=== PATIENT | male | born 1960 | race Caucasian/White ===

== ENCOUNTER 2020-04-28 06:20 | Observation (INO) ==
[2020-04-28] MEDS ORDERED: BUPIVACAINE 0.25% 30 ML VIAL ONE (06:46)
[2020-04-28] MEDS ORDERED: BACITRACIN INJ 50,000 UNIT VIAL ONE (06:46)
[2020-04-28] MEDS ORDERED: LIDOCAINE HCL 1% 20 ML VIAL ONE (06:46)
--- NOTE | 2020-04-28 06:49 | Pre Anesthesia Assessment ---
Date of Service April 28, 2020 Pre Sedation Assessment Vital Signs Temp Pulse Resp BP Pulse Ox 04/28/20 06:31 36.7 C 67 16 150/100 H 96 Cardiovascular + irregularly irregular Respiratory normal respiratory effort, lungs clear to auscultation Pre-Sedation Airway Assessment Smoking Status: Never smoker Hx Sleep Apnea: No Short, Thick Neck: No Thyromental Distance: > or= 3.5 Finger Breadths Oral Cavity: + WNL Mallampati Class: III ASA: ASA3 NPO Status Date of Last Intake of Fluids: 04/28/20 Time of Last Intake of Fluids: 06:32 Last Oral Intake of Fluids Comment: sip with meds Date of Last Intake of Solid Food: 04/27/20 Time of Last Intake of Solid Foods: 17:30 Procedure Planning Contraindications for Sedation: none Current Medications Reviewed: Yes Notes The planned sedation has been discussed with the patient. Informed Consent was obtained. I have identified the patient, determined the appropriateness of sedation and have assessed the patient immediately prior to the procedure. All medicine(s) and interventions are by my order.
--- NOTE | 2020-04-28 06:49 | History & Physical Bridge Note ---
Date of Service April 28, 2020 History & Physical Bridge Note I have examined the patient, reviewed the History & Physical and in the interval since the performance of the History & Physical I have noted the following changes of clinical significance: no changes noted
[2020-04-28] MEDS ORDERED: MIDAZOLAM HCL 5 MG/ML 1 ML VIAL ONE (06:50)
[2020-04-28] MEDS ORDERED: CEFAZOLIN 250 MG/ML 1 GM VIAL ONE (06:50)
[2020-04-28] MEDS ORDERED: fentaNYL citrate 100 MCG/2 ML VIAL ONE ×2 (06:50→07:11)
[2020-04-28] MEDS ORDERED: MIDAZOLAM HCL 1 MG/ML 2ML VIAL ONE ×2 (07:12→07:38)
--- NOTE | 2020-04-28 08:04 | Post Anesthesia Assessment ---
Date of Service April 28, 2020 Post Sedation Assessment Vital Signs Temp Pulse Resp BP Pulse Ox 04/28/20 06:31 36.7 C 67 16 150/100 H 96 Recovery Score Activity: Moves 4 extremities Respiration: Deep Breath/Cough Circulation: +/-20% PreAnes Value Consciousness: Fully Awake Oxygen Saturation: > 92% On Room Air Discharge Sedation Level of Care: Fast Track Phase II Post Sedation Plan On clinical assessment, the patient appears to have tolerated the sedation without complications. Patient is recovering as anticipated. Patient will continue to be monitored by nursing and may be discharged when sedation discharge criteria are met per below protocol. Upon Completions of procedure up to 15 minutes continue every 5 minute vital signs and the P.A.R. score; then discharge to a Phase I or Fast Track to Phase II per the following guidelines: * Discharge Patient to appropriate Phase II area if PAR is 8 or greater or return to pre- procedure baseline. The post - procedure orders will be as directed. * If PAR score is less than 8 or not return to pre-procedure baseline then patient will follow Phase I monitoring till PAR is reached for Phase II. The Phase I may be done in procedure room or may call to secure a Phase I area. * If naloxone or flumazenil are used for reversal, hold in Phase I for continued monitoring from when last reversal dose was given for a minimum of 60 minutes or longer pending the nurse and/or physician discretion of patient condition before discharge to Phase II. Please call the Sedation Physician to re-evaluate and complete post-note for discharge to Phase II area. Do NOT discharge from procedure sedation or Phase 1 until post- sedation evaluation note is complete by procedure /sedation MD Sedation Discharge Instructions to be given to the patient at discharge to home.
[2020-04-28] MEDS ORDERED: OXYCODONE/ACETAMINOPHEN 5mg/325mg TAB PO PRN (08:05)
--- NOTE | 2020-04-28 08:05 | Operative Report ---
Post Operative Report Pre & Post Diagnosis ICM and NICM, persistent AF, SB Operation Date: 04/28/20 08:00 <No data on this case meets the specified criteria> I identified the patient and participated in the time-out.: Yes Procedure Dual chamber ICD and synchronized external cardioversion (with unsuccessful internal synchronized cardioversion) Operation Date: 04/28/20 08:00 Actual Procedures p Cineradiography w/Routine Exam - Amanda Cheek DO Surgeon Amanda Cheek, Automotive Product Engineer none Estimated Blood Loss 20 Findings Consistent with Post-Op Diagnosis Specimens none Description of Procedure see official report I attest to the content of the Intraoperative Record and any orders documented therein. Any exceptions are noted below.
--- NOTE | 2020-04-28 08:15 | Discharge Summary ---
Date of Service April 29, 2020 Admission HPI Per Admitting Provider Pt admitted for elective ICD and cardioversion Admission Exam Per Admitting Provider aaox3, NAD NC/AT, EOMI Supple No JVD irregular/irregular S1/S2, + systolic murmur CTA b/l no w/r/r soft nt/nd no LE edema b/l skin intact no focal deficits Principal Diagnosis ICM s/p ICD and cardioversion Discharge Exam aaox3, NAD NC/AT, EOMI Supple No JVD Nrl S1/S2, + systolic murmur CTA b/l no w/r/r soft nt/nd no LE edema b/l skin intact no focal deficits left pectoral incision intact, no hematoma mild ecchymosis Discharge Data Allergies Allergy/AdvReac Type Severity Reaction Status Date / Time pregabalin [From Lyrica] AdvReac Unknown Verified 04/28/20 06:43 Procedures Performed Operation Date: 04/28/20 08:00 Actual Procedures p Cineradiography w/Routine Exam - Amanda Cheek DO Ordered Studies 04/28/20 06:46 CL Cath Imgs for PACS use only Routine Hospital Course (1) Cardiomyopathy: (2) Atrial fibrillation: Total Time Total Time Spent Total Time Spent (In Minutes): 40 Total Time Includes: Examination of the Patient, Discharge Planning, Medication Reconciliation and Other Discharge Plan Discharge Items Patient Disposition: Home - Self-Care Reason For Visit: Atrial Fribrillation; Cardiomyopathy Discharge Diagnosis: ICM and NICM and persistent AF and SB s/p ICD with cardioversion Condition on Discharge: Good Activity: As commented below Activity Comment: do not lift your left arm over your left shoulder for 1 month Lifting: No more than 10 pounds Lifting Comment: do not lift more than 10 pounds with the left arm for 2 weeks Bathing: Keep incision dry Bathing Comment: keep dressing on & dry for until wound check Sexual Activity: After two weeks Non-emergency contact: [employer] Call non-emergency contact if: you have any medication questions Follow-up/Referrals: Reshma Butler M.D. [Primary Care Provider] - Diet: Heart Healthy Addtl Attending Provider Instructions: Device and wound check next week at [facility] Cardiology F/u with Dr. Cheek in 1 month as scheduled Keep an eye on your device area daily if you notice any swelling call Dr. Cheek's office immediately You need weekly INR checks for the next month Pending Studies at Discharge: No Stand-Alone Forms: My [facility] Medications and DC Order Prescriptions: Continued ASPIRIN (ASPIRIN EC) 81 MG tablet 81 mg PO DAILY Qty: 0 RF: 0 Amlodipine (Norvasc) 5 MG tablet 2.5 mg PO DAILY Qty: 0 RF: 0 EZETIMIBE (ZETIA) 10 MG tablet 10 mg PO DAILY Qty: 0 RF: 0 FUROSEMIDE (LASIX) 40 MG tablet 40 mg PO DAILY Qty: 0 RF: 0 Lisinopril (Zestril) 20 MG tablet 10 mg PO DAILY Qty: 0 RF: 0 Metoprolol Succinate (Metoprolol Succinate ER) 25 MG [id number] 25 mg PO BID Qty: 0 RF: 0 Potassium Chloride (K-Tabs) 10 MEQ [id number] 10 meq PO DAILY Qty: 0 RF: 0 Rosuvastatin Calcium (Crestor) 10 MG tablet 1 tab PO DAILY Qty: 0 RF: 0 Warfarin Sod (Coumadin) 5 MG tablet 5 mg PO DAILY Qty: 0 RF: 0 ASCORBIC ACID (VITAMIN C) 500 MG capsule 500 mg PO DAILY Qty: 0 RF: 0 MAGNESIUM OXIDE (MAG-OXIDE) 400 MG tablet 400 mg PO DAILY Qty: 0 RF: 0 MULTIPLE VITAMIN (MULTIVITAMIN) 1 TAB tablet 1 tab PO DAILY Qty: 0 RF: 0 Nitroglycerin (Nitrostat) 0.4 MG tablet 0.4 mg UT PRN Qty: 0 RF: 0 [place]-3 Fatty Acids (Fish Oil) 1,000 MG capsule 1 cap PO DAILY Qty: 0 RF: 0 SAW PALMETTO (SERENOA REPENS) (SAW PALMETTO) 500 MG capsule 1 cap PO BID Qty: 0 RF: 0 amiodarone 200 mg Tablet 200 mg PO DAILY RF: 0 fexofenadine 180 mg Tablet 180 mg PO DAILY RF: 0 eplerenone 25 mg Tablet 25 mg PO DAILY RF: 0 Discharge Orders: Discharge Order (Routine); Ordered 04/29/20 Ordered By: Amanda Cheek Admission Data Admit Date/Time: 04/28/20 07:43 Attending Provider: Amanda Cheek Admit Provider: Amanda Cheek Primary Care Provider: Reshma Butler
[2020-04-28] MEDS ORDERED: NITROGLYCERIN SL 0.4 MG/TAB TAB SL PRN (08:50)
[2020-04-28] MEDS ORDERED: NON-FORMULARY MEDICATION (Saw Palmetto (Serenoa Repens) (Saw Palmetto) 1 CAP) PO SCH (09:00)
[2020-04-28 09:28] LABS: INR 2.5 (0.9-1.1); Prothrombin Time 25.1 Seconds (9.0-12.0)
[2020-04-28] MEDS: POTASSIUM CHLORIDE 10 MEQ TABCR PO SCH (09:54)
[2020-04-28] MEDS: FUROSEMIDE 40 MG TAB PO SCH (09:54)
--- NOTE | 2020-04-28 12:18 | Electrocardiogram Report ---
Test Reason : Blood Pressure : / mmHG Vent. Rate : 067 BPM Atrial Rate : 067 BPM P-R Int : 334 ms QRS Dur : 110 ms QT Int : 438 ms P-R-T Axes : 028 -15 137 degrees QTc Int : 462 ms Atrial-paced rhythm with prolonged AV conduction Poor R wave progression, consider anterior IA vs. lead placement vs. LVH T wave abnormality, consider lateral ischemia Abnormal ECG No previous ECGs available Confirmed by Prasanna Moise ([id number]) on 04/28/2020 12:17:51 PM Referred By: Efraín Barnes Confirmed By:Pa Moise
[2020-04-28] MEDS ORDERED: WARFARIN SOD 7.5 MG TAB PO SCH (16:00)
[2020-04-28] MEDS: ACETAMINOPHEN 325 MG TAB PO PRN (16:23)
[2020-04-28] MEDS: METOPROLOL SUCC 25MG EXT REL TAB PO SCH (20:40)
[2020-04-29] MEDS: ACETAMINOPHEN 325 MG TAB PO PRN (05:41)
--- NOTE | 2020-04-29 06:23 | Operative Report (OR) ---
DATE OF OPERATION: 04/28/2020 PREOPERATIVE DIAGNOSES: Ischemic cardiomyopathy along with a nonischemic valvular component, persistent atrial fibrillation, sinus bradycardia. POSTOPERATIVE DIAGNOSES: Ischemic cardiomyopathy along with a nonischemic valvular component, persistent atrial fibrillation, sinus bradycardia, sinus rhythm. PROCEDURE: Dual chamber rate responsive implantable cardiac defibrillator under fluoroscopic guidance along with a failed internal synchronized cardioversion to the defibrillator and a successful external synchronized cardioversion transcutaneously. SURGEON: Amanda Cheek DO. ASSISTANTS: None. ANESTHESIA: Monitored conscious sedation administered under my supervision by Alee Manning. Start time 7:00, end time 7:58. Total of 9 mg of Versed, 200 mcg of fentanyl. IV FLUIDS: 30 mL. ANTIBIOTICS: Two grams of Ancef. BLOOD LOSS: About 20 mL. URINE OUTPUT: Not applicable. SPECIMEN: None. FINDINGS: See below. DRAINS: None. INDICATIONS: This is a 60-year-old gentleman with past medical history for coronary artery disease with a CABG in 1993 and he has an extensive apical DC requiring urgent CABG at that time with a POSEY to LAD that was patent on the most recent cath in 2013. His SVG to OM on this cath was 80% stenosed. His SVG to RCA was occluded. He has a history of PTCA to the LAD in 2000 as well as a PCI to the SVG OM graft in 2013. Other histories are hypertension, hyperlipidemia, sinus bradycardia, bicuspid aortic valve status post [employer] mechanical prosthesis in 1993 secondary to moderate aortic valve stenosis. Persistent atrial fibrillation since 06/2019, he is on metoprolol and Coumadin. CHADS2-VASc score 2 and ischemic as well as nonischemic cardiomyopathy with an ejection fraction of 35% secondary to coronary artery disease and valvular disease. Due to this ischemic cardiomyopathy, the persistent atrial fibrillation and sinus bradycardia, he was recommended a defibrillator with cardioversion at that time. CONSENT: Consent was obtained prior to the patient going into Electrophysiology Lab. The patient was informed of the risks, benefits and alternative to procedure. Risks include but not limited to sudden cardiac ; cardiac arrhythmias; cerebrovascular accident; myocardial infarction; injury to the blood vessels, chamber of the heart, lungs; bleeding and infection. The patient understood these risks and agreed to proceed as planned. Informed consent was obtained. DESCRIPTION OF THE PROCEDURE: The patient was brought into the Electrophysiology Lab in a fasting state. He was connected to continuous falsework builder. Timeout was performed to ensure patient identity and procedure correctly. The patient was prepped and draped over the left infraclavicular space in normal surgical standard fashion. Monitored conscious sedation was given throughout the procedure for the patient's comfort level. [place] precautions maintained throughout the procedure. He received prophylactic antibiotics prior to incision. A 20 mL of 1% lidocaine-bupivacaine mixture were given in the left deltopectoral groove. Incision was made in left deltopectoral groove. Blunt dissection was performed down to identify cephalic vein. Cephalic vein was identified and isolated using 0 silk ties. The vein was nicked with 11 blade and a guidewire was inserted without any resistance. An 8-Malawian sheath was inserted over the guidewire without any resistance. Dilator was removed and a second guidewire was inserted through the 8-Malawian sheath to allow for retained venous access. Sheath was removed and a 9.5-Malawian sheath was inserted over one of the guidewires without any resistance. The guidewire and dilator removed. The right ventricular defibrillator lead was advanced into right ventricle and positioned RV apex under fluoroscopic guidance. There was adequate pacing and sensing thresholds and no diaphragmatic stimulation with high output pacing. The 9.5-Malawian sheath was peeled away and lead was fixated to pectoralis muscle using 0 silk suture. An 8-Malawian sheath was inserted over the retained guidewire without any resistance. The guidewire and dilator removed. The right atrial lead was then advanced into right atrium and positioned RA appendage under fluoroscopic guidance. I did have to reposition it once as it did not hold with the preformed blue J, so I ended up using a white preformed J curve. Of note, probably there is a little bit more lateral on the RA as there was not much of an appendage. There was adequate sensing of the fib waves and impedance was within normal limits. The 8-Malawian sheath was peeled away and lead was fixated to pectoralis muscle using 0 silk suture. Defibrillator pocket was created using blunt dissection over the pectoralis muscle within the pectoral fascia. A pursestring using a 2-[address] needle was placed around the venous puncture site to prevent any more backbleeding. The pocket was flushed with copious amounts of bacitracin saline wash and inspected for hemostasis. The generator was then attached to leads making sure that the pins were in appropriate position, passed set screw and set screws were all tightened. Pulse generator was then placed in the pocket making sure that the leads were lying flat beneath the device. As I was closing, we attempted to do an internal synchronized cardioversion at 35 joules, but this failed, so the patient got an external synchronized cardioversion at 360 joules, which converted him successfully to sinus rhythm. The incision was closed in 3-layer fashion using 2-0 Vicryl interrupted suture, followed by 3-0 Vicryl interrupted suture, followed by 4-0 Monocryl running stitch and Dermabond was applied followed by Telfa and micropore dressing. EQUIPMENT: 1. The pulse generator is a [employer] MRI XT DR Brantley [id number], serial number [id number]. 2. Right atrial lead, Medtronic 5076-52 cm, serial number [id number]. 3. Right ventricular lead, Medtronic 6935M-62 cm, serial number [id number]. INTRAOPERATIVE EQUIPMENT: 1. Right atrial lead: Fib waves were 0.7 millivolts, impedance 628 ohms, threshold is not done because the patient is in fib. 2. Right ventricular lead: R waves 8.9 millivolts, impedance 645 ohms, threshold 0.9 volts at 0.4 milliseconds. FINAL MEASUREMENTS THROUGH THE DEVICE: 1. Right atrial lead: P waves 0.6 millivolts, impedance 399 ohms, threshold 1.25 volts at 0.4 milliseconds. 2. Right ventricular lead: R waves 10 millivolts, impedance 494 ohms, threshold 1 volt at 0.4 milliseconds. 3. RV coil 69 ohms. FINAL PARAMETERS: MVP-R 60/130, right atrial and right ventricular amplitude 3.5 volts, pulse width 0.4 milliseconds, sensitivity 0.3 millivolts. VT monitor zone at 140 beats per minute for 32 detection intervals and a VT zone 167 beats per minute for 16 detection intervals and VF zone at 200 beats per minute for 30/40 detection intervals. IMPRESSION: Successful implantation of a dual chamber rate responsive implantable cardiac defibrillator along with a successful external synchronized cardioversion and failed internal synchronized cardioversion through the defibrillator all under fluoroscopic guidance secondary to a mixed cardiomyopathy of ischemic cardiomyopathy and nonischemic valvular disease, persistent atrial fibrillation and sinus bradycardia. PLAN: Monitor the patient overnight, 12-lead ECG, chest x-ray. He is not allowed to lift left elbow or left shoulder for 1 month. He cannot lift more than 10 pounds with the left arm for 2 weeks. He is to keep the dressing on and dry until his wound check next week. He is to continue his Coumadin with weekly INR checks for the next month and I will see him back in 1 month's time in our office. I attest to the content of the Intraoperative Record and any orders documented therein. Any exceptions are noted below. EZEQUIEL
[2020-04-29 06:50] LABS: INR 2.2 (0.9-1.1); Prothrombin Time 22.6 Seconds (9.0-12.0)
--- NOTE | 2020-04-29 07:47 | XRay Report ---
XR chest 2V PA/lateral CLINICAL HISTORY: post ICD and cardioversion COMPARISON STUDY: No previous studies for comparison. FINDINGS: A dual-lead left pacer/AICD is in place. Lead tips project over the right atrial appendage and right ventricle. There is no pneumothorax. Mediastinal wires and mediastinal surgical clips are n oted. Moderate cardiomegaly is noted without evidence for pulmonary edema. There is a trace left pleu ral effusion. IMPRESSION: 1. No pneumothorax. Dual-lead left subclavian pacer/AICD in place. 2. Moderate cardiomegaly without evidence for pulmonary edema. 3. Trace left pleural effusion. ACT 112: Negative or not required by law. Electronically signed by: Luigi Martin M.D. 04/29/2020 7:46 AM
[2020-04-29] MEDS: METOPROLOL SUCC 25MG EXT REL TAB PO SCH (08:12)
[2020-04-29] MEDS: POTASSIUM CHLORIDE 10 MEQ TABCR PO SCH (08:30)
[2020-04-29] MEDS: FUROSEMIDE 40 MG TAB PO SCH (08:30)
[2020-04-29] MEDS ORDERED: ASCORBIC ACID 500 MG TAB PO SCH (09:00)
[2020-04-29] MEDS ORDERED: FEXOFENADINE HCL 180 MG TAB PO SCH (09:00)
[2020-04-29] MEDS ORDERED: MAGNESIUM OXIDE 400 MG TAB PO SCH (09:00)
[2020-04-29] MEDS ORDERED: ASPIRIN 81 MG ECTAB PO SCH (09:00)
[2020-04-29] MEDS ORDERED: ROSUVASTATIN CALCIUM 10 MG TAB PO SCH (09:00)
[2020-04-29] MEDS ORDERED: EZETIMIBE 10 MG TABLET PO SCH (09:00)
[2020-04-29] MEDS ORDERED: AMIODARONE 200 MG TAB PO SCH (09:00)
[2020-04-29] MEDS ORDERED: MULTIVITAMIN TAB PO SCH (09:00)
[2020-04-29] MEDS ORDERED: AMLODIPINE BESYLATE 5 MG TAB PO SCH (09:00)
[2020-04-29] MEDS ORDERED: OMEGA-3 (PURIFIED FISH OIL) 1 GM CAP PO SCH (09:00)
[2020-04-29] MEDS ORDERED: lisinopriL 10 MG TAB PO SCH (09:00)
== END 2020-04-29 10:10 | disposition home or self-care (01) ==
LOC: 2S 06:20 → EP 06:20
PROC: EPB.ICD (2020-04-28 08:00)